=== PATIENT | female | born 1955 | race Hispanic/Latino ===

== ENCOUNTER 2017-05-20 12:48 | Inpatient (IN) | payer MEDICAID ==
[~2017-05-20] VITALS: Ht 149.9 cm; Wt 63.7 kg
[~2017-05-20 12:48] MED LIST: ASPI-1005 PO; ATOR40TA69 PO; CLOP75TA14 PO; FE F1CAP9 PO; FURO40TA7 PO; INSU100V12 SQ; LEVO125 PO; LOSA50TA2 PO; METF10004 PO; METO-391 PO; NITR0.4T SL; OMEG1CAP6 PO; POTA20TA12 PO; SAXA5TAB PO
[2017-05-20] MEDS ORDERED: AMLODIPINE BESYLATE 5 MG TAB PO ONE (13:19)
[2017-05-20 13:58] LABS: BASOPHILS % (AUTO) 0.4 % (0.0-5.0); HEMATOCRIT 40.5 % (36-48); LYMPHOCYTES % (AUTO) 20.1 % (21.0-51.0); MEAN CORPUSCULAR HEMOGLOBIN 25.1 pg (27.0-33.0); MEAN CORPUSCULAR VOLUME 78.3 fL (79-99); MONOCYTES % (AUTO) 6.7 % (3.0-13.0); NEUTROPHILS % (AUTO) 69.8 % (40.0-77.0); NUCLEATED RED BLOOD CELLS 0.1 % (0.0-0.19); PLATELET COUNT (AUTO) 266 K/uL (130-400); RED BLOOD CELL COUNT(AUTO) 5.17 MIL/uL (4.00-5.50); RED CELL DISTRIBUTION WIDTH 15.9 % (11.0-15.5); WHITE BLOOD COUNT (AUTO) 8.4 K/uL (4.8-10.8)
[2017-05-20] MEDS ORDERED: IOPAMIDOL-370 75 ML VIAL IV ONE ×2 (15:05→17:48)
[2017-05-20] MEDS ORDERED: NITROGLYCERIN 50 MG/D5% WATER 1 BOT ONE (16:36)
[2017-05-20 16:46] LABS: POTASSIUM 5.1 mmol/L (3.5-5.1)
[2017-05-20 17:01] LABS: ALBUMIN 3.2 g/dL (3.5-5.0); BILIRUBIN,TOTAL 0.3 mg/dL (0.2-1.0); CREATINE KINASE MB 1.3 ng/mL (0.5-3.6); TOTAL PROTEIN, SERUM 7.5 g/dL (6.0-8.3); TROPONIN I 0.13 ng/mL (0.00-0.06)
[2017-05-20] MEDS ORDERED: FISH OIL 1000 MG/CAP PO SCH (21:00)
[2017-05-20] MEDS ORDERED: ATORVASTATIN CALCIUM 40 MG TABLET PO SCH (21:00)
[2017-05-20] MEDS ORDERED: INSULIN GLARGINE 100 UNITS/ML 10 ML VIAL SQ SCH (21:00)
[2017-05-20 23:45] VITALS: BP 168/91
[2017-05-21] VITALS (27 sets, daily range): BP systolic 132–170; BP diastolic 63–90
[2017-05-21 00:24] LABS: ALBUMIN 3.2 g/dL (3.5-5.0); BILIRUBIN,TOTAL 0.3 mg/dL (0.2-1.0); CREATININE 0.9 mg/dL (0.5-1.5); TOTAL PROTEIN, SERUM 7.4 g/dL (6.0-8.3)
[2017-05-21 00:32] LABS: CREATINE KINASE MB 1.2 ng/mL (0.5-3.6); TROPONIN I 0.14 ng/mL (0.00-0.06)
[2017-05-21 00:39] LABS: BASOPHILS % (AUTO) 0.5 % (0.0-5.0); EOSINOPHILS % (AUTO) 2.2 % (0.0-8.0); HEMATOCRIT 37.6 % (36-48); LYMPHOCYTES % (AUTO) 22.9 % (21.0-51.0); MEAN CORPUSCULAR HEMOGLOBIN 25.1 pg (27.0-33.0); MEAN CORPUSCULAR HGB CONC 32.1 g/dL (32.0-36.0); MEAN CORPUSCULAR VOLUME 78.2 fL (79-99); MONOCYTES % (AUTO) 9.6 % (3.0-13.0); NEUTROPHILS % (AUTO) 64.8 % (40.0-77.0); PLATELET COUNT (AUTO) 272 K/uL (130-400); RED CELL DISTRIBUTION WIDTH 15.6 % (11.0-15.5); WHITE BLOOD COUNT (AUTO) 9.4 K/uL (4.8-10.8)
[2017-05-21] MEDS ORDERED: NITROGLYCERIN 0.4 MG SL TAB SL PRN (01:30)
[2017-05-21] MEDS ORDERED: LIDOCAINE HCL-MPF 1% 2ML VIAL IVP PRN (01:30)
[2017-05-21] MEDS ORDERED: HYDRALAZINE HCL 20 MG/ML VIAL IV PRN (01:30)
[2017-05-21] MEDS ORDERED: ACETAMINOPHEN 325 MG TAB PO PRN ×2 (01:30)
[2017-05-21] MEDS ORDERED: TRAMADOL HCL 50 MG TABLET PO PRN (01:30)
[2017-05-21] MEDS ORDERED: POTASSIUM CHLORIDE 20 MEQ ERTAB PO PRN (01:30)
[2017-05-21] MEDS ORDERED: POTASSIUM CHLORIDE 20MEQ/100ML 100 ML IV PRN (01:30)
[2017-05-21] MEDS ORDERED: ONDANSETRON HCL MDV 20ML 2 MG/ML VIAL IV PRN (01:30)
[2017-05-21] MEDS ORDERED: POTASSIUM CHLORIDE 10% ELIXIR 20 MEQ/15 ML UDCUP PO PRN (01:30)
[2017-05-21 04:33] LABS: HEMOGLOBIN A1C 6.6 % (4.0-6.0)
[2017-05-21 05:04] LABS: CREATINE KINASE MB 0.7 ng/mL (0.5-3.6); THYROID STIMULATING HORMONE 0.06 uIU/mL (0.36-3.74); TROPONIN I 0.13 ng/mL (0.00-0.06)
[2017-05-21] MEDS ORDERED: MORPHINE SULFATE 2 MG/ML 1ML SYG IVP PRN (06:00)
[2017-05-21] MEDS ORDERED: MORPHINE SULFATE 4 MG/1ML SYG IVP PRN (06:00)
[2017-05-21] MEDS ORDERED: ACETAMINOPHEN-CODEINE 300/30MG TAB PO PRN ×2 (06:00)
[2017-05-21] MEDS: INSULIN HUMULIN R 100 UNIT/ML 3ML SQ SCH ×4 (06:01→20:27)
[2017-05-21] MEDS: LOSARTAN 50 MG TABLET PO SCH (08:42)
[2017-05-21] MEDS: AMLODIPINE BESYLATE 5 MG TAB PO SCH (08:42)
[2017-05-21] MEDS: METOPROLOL TARTRATE 25 MG TAB PO SCH ×2 (08:42→20:30)
[2017-05-21] MEDS: ASPIRIN 325MG EC TAB 325 MG TABLET.DR PO SCH (08:43)
[2017-05-21] MEDS: FAMOTIDINE 20MG TAB 20 MG TAB PO SCH ×2 (08:43→20:30)
[2017-05-21] MEDS: ENOXAPARIN SODIUM 40 MG/0.4 ML SYRINGE SQ SCH (08:43)
[2017-05-21] MEDS ORDERED: ASPIRIN 325 MG TABLET PO SCH (09:00)
[2017-05-21] MEDS ORDERED: LOSA50TA2 PO (14:34)
[2017-05-21] MEDS ORDERED: METO-391 PO (17:32)
[2017-05-22] VITALS (8 sets, daily range): BP systolic 140–178; BP diastolic 71–93
[2017-05-22] MEDS: AMLODIPINE BESYLATE 5 MG TAB PO SCH ×3 (00:10→23:41)
[2017-05-22 03:43] LABS: MEAN CORPUSCULAR HEMOGLOBIN 24.7 pg (27.0-33.0); MEAN CORPUSCULAR HGB CONC 32.1 g/dL (32.0-36.0); PLATELET COUNT (AUTO) 244 K/uL (130-400); RED BLOOD CELL COUNT(AUTO) 5.07 MIL/uL (4.00-5.50); RED CELL DISTRIBUTION WIDTH 15.2 % (11.0-15.5); WHITE BLOOD COUNT (AUTO) 9.4 K/uL (4.8-10.8)
[2017-05-22 03:58] LABS: CREATININE 0.8 mg/dL (0.5-1.5); POTASSIUM 3.7 mmol/L (3.5-5.1)
[2017-05-22] MEDS ORDERED: POTASSIUM CHLORIDE 10 MEQ/TAB.SA PO ONE ×4 (04:41→05:53)
[2017-05-22] MEDS: INSULIN HUMULIN R 100 UNIT/ML 3ML SQ SCH ×4 (05:56→21:00)
[2017-05-22] MEDS: ATORVASTATIN CALCIUM 40 MG TABLET PO SCH (08:38)
[2017-05-22] MEDS: FE FUMARATE/FA/MV, MIN COMB#15 1 TAB PO SCH ×2 (08:38→20:56)
[2017-05-22] MEDS: METOPROLOL TARTRATE 25 MG TAB PO SCH ×2 (08:38→20:56)
[2017-05-22] MEDS: LEVOTHYROXINE 125 MCG TABLET PO SCH (08:38)
[2017-05-22] MEDS: FAMOTIDINE 20MG TAB 20 MG TAB PO SCH ×2 (08:38→20:55)
[2017-05-22] MEDS: CLOPIDOGREL BISULFATE 75 MG TAB PO SCH (08:38)
[2017-05-22] MEDS: LOSARTAN 50 MG TABLET PO SCH (08:38)
[2017-05-22] MEDS: LINAGLIPTIN 5 MG TABLET PO SCH (08:38)
[2017-05-22] MEDS: ASPIRIN 325MG EC TAB 325 MG TABLET.DR PO SCH (08:38)
[2017-05-22] MEDS: ENOXAPARIN SODIUM 40 MG/0.4 ML SYRINGE SQ SCH (08:40)
[2017-05-22] MEDS: **HM** TOPROL XL 50MG PO SCH ×2 (08:40→20:56)
[2017-05-22] MEDS: FISH OIL 1000 MG/CAP PO SCH ×3 (08:41→20:55)
[2017-05-23 03:51] VITALS: BP 159/82
[2017-05-23] MEDS: INSULIN HUMULIN R 100 UNIT/ML 3ML SQ SCH ×2 (06:43→11:56)
[2017-05-23] MEDS ORDERED: AMLO5TAB4 PO (06:43)
[2017-05-23 07:52] VITALS: BP 151/93
[2017-05-23] MEDS: **HM** TOPROL XL 50MG PO SCH (09:00)
[2017-05-23] MEDS: FISH OIL 1000 MG/CAP PO SCH (09:48)
[2017-05-23] MEDS: ASPIRIN 325MG EC TAB 325 MG TABLET.DR PO SCH (09:48)
[2017-05-23] MEDS: FE FUMARATE/FA/MV, MIN COMB#15 1 TAB PO SCH (09:48)
[2017-05-23] MEDS: LEVOTHYROXINE 125 MCG TABLET PO SCH (09:48)
[2017-05-23] MEDS: LINAGLIPTIN 5 MG TABLET PO SCH (09:49)
[2017-05-23] MEDS: ATORVASTATIN CALCIUM 40 MG TABLET PO SCH (09:49)
[2017-05-23] MEDS: CLOPIDOGREL BISULFATE 75 MG TAB PO SCH (09:49)
[2017-05-23] MEDS: AMLODIPINE BESYLATE 5 MG TAB PO SCH (09:49)
[2017-05-23] MEDS: LOSARTAN 50 MG TABLET PO SCH (09:49)
[2017-05-23] MEDS: METOPROLOL TARTRATE 25 MG TAB PO SCH (09:49)
[2017-05-23] MEDS: FAMOTIDINE 20MG TAB 20 MG TAB PO SCH (09:49)
[2017-05-23] MEDS: ENOXAPARIN SODIUM 40 MG/0.4 ML SYRINGE SQ SCH (09:50)
[2017-05-23 11:06] VITALS: BP 149/84
== END 2017-05-23 13:20 | disposition home or self-care (01) | DRG 190 ==
LOC: EDH 12:48 → OBSVTOIN 12:49 → EDHIP 12:49 → 2BH 23:42 → 2DH 05-21 17:17
PROVIDERS: ADMIT Internal Medicine; ATTEND Internal Medicine
DX: I21.9 Acute myocardial infarction, unspecified (principal); I11.9 Hypertensive heart disease without heart failure; E11.9 Type 2 diabetes mellitus without complications; E03.9 Hypothyroidism, unspecified; E78.5 Hyperlipidemia, unspecified; I25.10 Atherosclerotic heart disease of native coronary artery without angina pectoris; I45.10 Unspecified right bundle-branch block; K80.20 Calculus of gallbladder without cholecystitis without obstruction; Z86.73 Personal history of transient ischemic attack (TIA), and cerebral infarction without residual deficits; Z95.1 Presence of aortocoronary bypass graft
CPT/HCPCS: 36415; 71045; 71260; 72072; 80048; 80053; 80061; 82550; 82553; 82948; 83036; 83874; 84443; 84484; 85025; 85027; 93005; 93306; J1650; J3490; Q9967

== ENCOUNTER → 2018-12-15 | Outpatient (CLI) | payer MEDICAID ==
[~2018-12-15] MED LIST changes: +AMLO5TAB4 PO; -FE F1CAP9 PO; -FURO40TA7 PO; +LEVO112T7 PO; -LEVO125 PO; +METF-446 PO; -METF10004 PO; -METO-391 PO; -OMEG1CAP6 PO; -POTA20TA12 PO
== END | disposition home or self-care (01) ==
LOC: SHCH 11:18
PROVIDERS: ATTEND Internal Medicine Cardiovascular Disease
DX: I73.9 Peripheral vascular disease, unspecified (principal)
CPT/HCPCS: 93880

== ENCOUNTER → 2019-11-09 | Outpatient (CLI) | payer MEDICAID | END | disposition home or self-care (01) | LOC: SHCH 11:44 | PROVIDERS: ATTEND Internal Medicine Cardiovascular Disease | DX: I10 Essential (primary) hypertension (principal) | CPT/HCPCS: 93306; 93356 ==

== ENCOUNTER → 2019-11-13 | Outpatient (CLI) | payer MEDICAID ==
[~2019-11-13] MED LIST changes: +REGADENOSON 0.4 MG/5 ML PF SYG IVP SCH
== END | disposition home or self-care (01) ==
LOC: SHCH 08:05
PROVIDERS: ATTEND Internal Medicine Cardiovascular Disease
DX: I21.09 ST elevation (STEMI) myocardial infarction involving other coronary artery of anterior wall (principal); I25.10 Atherosclerotic heart disease of native coronary artery without angina pectoris
CPT/HCPCS: 78452; 93017; 96374; A9500 ×2; J2785